=== PATIENT | male | born 2000 | race Two or more races ===

== ENCOUNTER → 2025-05-19 | Outpatient (CLI) | payer MEDICAID, SELFPAY ==
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
== END | disposition home or self-care (01) ==
PROVIDERS: Referring Provider Surgery; Visit Provider Surgery
DX: S62.610A Displaced fracture of proximal phalanx of right index finger, initial encounter for closed fracture (principal); X58.XXXA Exposure to other specified factors, initial encounter
CPT/HCPCS: 73218

== ENCOUNTER 2025-08-26 15:30 | Outpatient (RCR) | payer MEDICAID, SELFPAY ==
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
--- NOTE | 2025-08-06 11:56 | PT.ODAYNRPT ---
PT Outpatient Daily Note OP Daily Note Outpatient Physical Therapy Treatment Date: 08/06/25 Visit Reasons: HAND SURGERY Subjective: Pt reports he has been performing HEP as instructed by PTOR. Objective: please see flow sheet for ther ex list. Assessment: Performed PROM to second and third digit, pt tolerated with minimal pain. Pt encouraged to continue with HEp. Plan: Assess response to treatment. Length of Time (minutes) of Treatment: 30 Minutes Procedure Charges Therapeutic Exercise 30 minutes: Yes
--- NOTE | 2025-08-08 10:56 | PT.ODAYNRPT ---
PT Outpatient Daily Note OP Daily Note Outpatient Physical Therapy Treatment Date: 08/08/25 Visit Reasons: HAND SURGERY Subjective: Pt notice with progress with finger ROM. Pt still notice stiffness when he bends the finger. Objective: Please see flow chart for list of ther ex performed Assessment: progressing with finger flexion AROM with less pain reported. Post ice helped with fatigue and pain Plan: Continue with PT Length of Time (minutes) of Treatment: 30 Minutes Procedure Charges Therapeutic Exercise 30 minutes: Yes
--- NOTE | 2025-08-13 10:45 | PT.ODAYNRPT ---
PT Outpatient Daily Note OP Daily Note Outpatient Physical Therapy Treatment Date: 08/13/25 Visit Reasons: HAND SURGERY Subjective: Pt's is better and able to move the index more. Objective: Please see flow chart for list of ther ex performed Assessment: continue to show improvement with 1st digit finger flexion post PT session. Pt progressing with resistance exercise with good form Plan: Continue with PT Length of Time (minutes) of Treatment: 30 Minutes Procedure Charges Therapeutic Exercise 30 minutes: Yes
--- NOTE | 2025-08-15 13:31 | PT.ODAYNRPT ---
PT Outpatient Daily Note OP Daily Note Outpatient Physical Therapy Treatment Date: 08/15/25 Visit Reasons: HAND SURGERY Subjective: Pt's index still stiff but making a fist continues to get easier. Pt follows up with surgeon soon and wants to know when he can return back to work. Objective: Please see flow chart for list of ther ex performed Assessment: conitnues to improve with 1st digit PROM and AROM with less pain reported. Pt had difficulty completing clothe pin exercise due to fatigue and decrease reps to 4 vs 6x Plan: Continue with PT Length of Time (minutes) of Treatment: 30 Minutes Procedure Charges Therapeutic Exercise 30 minutes: Yes
--- NOTE | 2025-08-20 13:54 | PT.ODAYNRPT ---
PT Outpatient Daily Note OP Daily Note Outpatient Physical Therapy Treatment Date: 08/20/25 Visit Reasons: HAND SURGERY Subjective: Pt seen hand specialist and extended his leave another 3 weeks. Pt uses a spray gun at work and at the moment due to his limitation he will be unable to perform certain work duties at work Objective: Please see flow chart for list of ther ex performed Assessment: patient continues to improve with finger PROM and AROM with less pain reported. Pt demonstrate full PROM post PT session. Pt instructed to continue finger flexion stretching at home as HEP to maintain gained ROM Plan: Continue with PT Length of Time (minutes) of Treatment: 30 Minutes Procedure Charges Therapeutic Exercise 30 minutes: Yes
--- NOTE | 2025-08-26 16:04 | PT.ODAYNRPT ---
PT Outpatient Daily Note OP Daily Note Outpatient Physical Therapy Treatment Date: 08/26/25 Visit Reasons: HAND SURGERY Subjective: Pt's hand feels better. No new concerns to report. Objective: Please see flow chart for list of ther ex performed Assessment: tolerate exercises with minimal pain Plan: Continue with PT Length of Time (minutes) of Treatment: 30 Minutes Procedure Charges Therapeutic Exercise 30 minutes: Yes
== END 2025-08-26 23:59 | disposition home or self-care (01) ==
LOC: CPTX 15:30
PROVIDERS: PCP Nurse Practitioner Family; Referring Provider Nurse Practitioner Family; Visit Provider Nurse Practitioner Family
DX: M79.644 Pain in right finger(s) (principal); R53.1 Weakness; S62.610D Displaced fracture of proximal phalanx of right index finger, subsequent encounter for fracture with routine healing; V89.2XXD Person injured in unspecified motor-vehicle accident, traffic, subsequent encounter
CPT/HCPCS: 97110; 97162

== ENCOUNTER 2025-09-24 08:30 | Outpatient (RCR) | payer MEDICAID, SELFPAY ==
--- NOTE | 2025-08-28 16:01 | PT.ODAYNRPT ---
PT Outpatient Daily Note OP Daily Note Outpatient Physical Therapy Treatment Date: 08/28/25 Visit Reasons: RT hand surgery Subjective: Pt's finger is slowly feeling better. Pt mentioned the strength in the finger has improved significantly. Objective: Please see flow chart for list of ther ex perfomed Assessment: demonstrate full 2nd digit flexion PROM. Pt is progressing with hand resistance exercises with less pain reported. Plan: Continue with PT Length of Time (minutes) of Treatment: 30 Minutes Procedure Charges Therapeutic Exercise 30 minutes: Yes
--- NOTE | 2025-09-02 15:43 | PTNOTE_ITS ---
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 Objective: Please see flow sheet for ther ex list. QAMAR ledger clerk score: L 120 lbs, R 80 lbs. Assessment: Progressing resistance for gripping exercises, pt tolerated well. ledger clerk continues to improve indicated by above measurement. Plan: Continue with poC. Length of Time (minutes) of Treatment: 30 Minutes Procedure Charges Therapeutic Exercise 30 minutes: Yes
--- NOTE | 2025-09-02 15:43 | PT.ODAYNRPT ---
PT Outpatient Daily Note OP Daily Note Outpatient Physical Therapy Treatment Date: 09/02/25 Visit Reasons: RT hand surgery Subjective: Pt reports finger is moving better but feels finger and stretcher and drier strength is weak. Objective: Please see flow sheet for ther ex list. QAMAR stretcher and drier score: L 120 lbs, R 80 lbs. Assessment: Progressing resistance for gripping exercises, pt tolerated well. stretcher and drier continues to improve indicated by above measurement. Plan: Continue with poC. Length of Time (minutes) of Treatment: 30 Minutes Procedure Charges Therapeutic Exercise 30 minutes: Yes
--- NOTE | 2025-09-10 15:25 | PT.ODAYNRPT ---
PT Outpatient Daily Note OP Daily Note Outpatient Physical Therapy Treatment Date: 09/10/25 Visit Reasons: RT hand surgery Subjective: Pt's hand is better. Pt does not have any concerns. Objective: Please see flow chart for list of ther ex performed Assessment: tolerate exercises with minimal pain and added more resistance exercises with slight fatigue reported Plan: Continue with PT Length of Time (minutes) of Treatment: 30 Minutes Procedure Charges Therapeutic Exercise 30 minutes: Yes
--- NOTE | 2025-09-12 15:24 | PT.ODAYNRPT ---
PT Outpatient Daily Note OP Daily Note Outpatient Physical Therapy Treatment Date: 09/12/25 Visit Reasons: RT hand surgery Subjective: Pt reports hand is doing better, has one more PT session left. Objective: Please see flow sheet for ther ex list. Assessment: Progressing interventions as tolerated. Plan: assess for note, pt has one visit left. Length of Time (minutes) of Treatment: 30 Minutes Procedure Charges Therapeutic Exercise 30 minutes: Yes
--- NOTE | 2025-09-24 08:50 | PT.ODS1RPT ---
PT OP Progress/Discharge Note Date of Service: 09/24/25 Progress Note/DC Note Progress Note/Discharge Note: DC Note Patient Information Visit Reasons: RT hand surgery Medical Diagnosis: s62.619a; m25.531 Treatment Dx #1: Right Hand Pain Treatment Dx #2: Right Hand Weakness Service Continue Service or Discharge: Discharge Discharge Date: 09/24/25 Status Subjective: Pt has return back to work and release from MD's care ~ 2 weeks ago. Pt's hand feels much better and has been able to resume most ADLs, work duties, and recreational activities. 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 Pt has completed authorized session and was instructed on HEP last session to continue at home. Pt demonstrate all exercises safely, thank you for your referrals. Plan: D/C home with HEP and follow up with MD Procedure Charges Therapeutic Exercise 30 minutes: Yes
== END 2025-09-26 23:59 | disposition home or self-care (01) ==
LOC: CPTX 08:30
PROVIDERS: PCP Nurse Practitioner Family; Referring Provider Nurse Practitioner Family; Visit Provider Nurse Practitioner Family
DX: M79.641 Pain in right hand (principal); M25.531 Pain in right wrist; R53.1 Weakness; S62.610D Displaced fracture of proximal phalanx of right index finger, subsequent encounter for fracture with routine healing; V89.2XXD Person injured in unspecified motor-vehicle accident, traffic, subsequent encounter
CPT/HCPCS: 97110